=== PATIENT | female | born 1965 | race Caucasian/White ===

== ENCOUNTER → 2016-04-29 | Outpatient (CLI) | payer BC ==
--- NOTE | 2016-04-30 06:57 | US ---
EXAMINATION TYPE: US thyroid st tissue head/neck DATE OF EXAM: 04/29/2016 3:56 PM COMPARISON: NONE CLINICAL HISTORY: R59.0 Loc enlarged lymph nodes. Bilateral anterior neck palpable areas. TECHNOLOGIST IMPRESSION: Bilateral neck scanned at area of palpable masses. On both sides, multiple vascular hypoechoic lesions seen. Largest measured. Probable lymph nodes. Right- 1- 1.1 x 0.6 x 0.3 cm 2- 1.0 x 0.7 x 0.4 cm Left- 1- 1.3 x 0.8 x 0.7 cm 2- 0.7 x 0.4 x 0.3 cm 3- 1.9 x 1.1 x 0.5 cm Images of the bilateral neck show prominent but benign-appearing oval well-circumscribed lymph nodes that appear to retain normal central hyperechoic area or fatty hilum. No lymph nodes greater than 1 c m in short axis are clearly seen. No worrisome fluid collection is noted. IMPRESSION: Benign-appearing lymph nodes documented by technologist. No suspicious mass or adenopath y is clearly identified on images saved.
--- NOTE | 2016-05-02 07:48 | MM ---
Reason for exam: history of breast cancer, mastectomy. History: Patient is postmenopausal and is nulliparous. Mastectomy of the right breast, 2004. Took antineoplastic for 1 year 6 months beginning at age 39. Physical Findings: Nurse did not find any significant physical abnormalities on exam. MG Diagnostic Mammo LT w CAD CC and MLO view(s) were taken of the left breast. The breast tissue is heterogeneously dense. This may lower the sensitivity of mammography. No significant new findings when compared with previous films. These results were verbally communicated with the patient and result sheet given to the patient on 04/29/16. ASSESSMENT: Benign, BI-RAD 2 RECOMMENDATION: Follow-up diagnostic mammogram of the left breast in 1 year.
== END | disposition home or self-care (01) ==
LOC: RADMAMWWP 14:34
PROVIDERS: ATTEND Family Medicine
DX: Z08 Encounter for follow-up examination after completed treatment for malignant neoplasm (principal); Z85.3 Personal history of malignant neoplasm of breast; R59.0 Localized enlarged lymph nodes
CPT/HCPCS: 76536; G0206

== ENCOUNTER → 2017-08-10 | Outpatient (CLI) | payer BC ==
--- NOTE | 2017-08-10 14:21 | MM ---
Reason for exam: additional evaluation requested from prior study. Last mammogram was performed 1 year and 3 months ago. History: Patient is postmenopausal, has history of breast cancer at age 38, and is nulliparous. Mastectomy of the right breast, 2004. Took antineoplastic for 1 year 6 months beginning at age 39. Physical Findings: Nurse Summary: 1 x 1cm nodule in the right breast outer aspect mastectomy scar and a 1 x 1.5cm nodule in the left breast at 1 o'clock upper outer quadrant (nurse ts). MG 3D Diag Mammo W/Cad LT CC and MLO view(s) were taken of the left breast. Prior study comparison: April 29, 2016, left breast MG diagnostic mammo LT w CAD. The breast tissue is heterogeneously dense. This may lower the sensitivity of mammography. There is no discrete abnormality including area of concern. No significant new findings when compared with previous films. These results were verbally communicated with the patient and result sheet given to the patient on 08/10/17. ASSESSMENT: Incomplete: need additional imaging evaluation, BI-RAD 0 RECOMMENDATION: Ultrasound of both breasts.
--- NOTE | 2017-08-10 14:22 | USB ---
Reason for exam: additional evaluation requested from abnormal screening. History: Patient is postmenopausal, has history of breast cancer at age 38, and is nulliparous. Mastectomy of the right breast, 2004. Took antineoplastic for 1 year 6 months beginning at age 39. US Breast Limited BILAT Right limited breast ultrasound including focal area of concern, retroareolar and axilla demonstrates no cystic or solid lesion seen. Left limited breast ultrasound including focal area of concern, retroareolar and axilla demonstrates no cystic or solid lesion seen. Left 1 o'clock palpable appears to be dense tissue. These results were verbally communicated with the patient and result sheet given to the patient on 08/10/17. ASSESSMENT: Negative, BI-RAD 1 RECOMMENDATION: Follow-up diagnostic mammogram of the left breast in 1 year.
== END | disposition home or self-care (01) ==
LOC: RADMAMWWP 12:52
PROVIDERS: ATTEND Family Medicine
DX: Z08 Encounter for follow-up examination after completed treatment for malignant neoplasm (principal); R92.8 Other abnormal and inconclusive findings on diagnostic imaging of breast; Z85.3 Personal history of malignant neoplasm of breast
CPT/HCPCS: 77061; 77065

== ENCOUNTER → 2019-10-23 | Outpatient (CLI) | payer BC ==
--- NOTE | 2019-10-23 15:05 | MM ---
Reason for exam: additional evaluation requested from prior study. Last mammogram was performed 2 years and 2 months ago. History: Patient is postmenopausal, has history of breast cancer at age 38, and is nulliparous. Family history of breast cancer in paternal aunt. Mastectomy of the right breast, 2004. Took antineoplastic for 1 year 6 months beginning at age 39. Physical Findings: Nurse did not find any significant physical abnormalities on exam. MG 3D Diag Mammo W/Cad LT CC, MLO, spot compression MLO, and spot compression CC view(s) were taken of the left breast. Prior study comparison: August 10, 2017, left breast MG 3d diag mammo w/cad LT. April 29, 2016, left breast MG diagnostic mammo LT w CAD. The breast tissue is heterogeneously dense. This may lower the sensitivity of mammography. Subtle asymmetric density posterior upper outer quadrant maybe slightly more pronounced. Appearance is unchanged on spot views. Ultrasound recommended. These results were verbally communicated with the patient and result sheet given to the patient on 10/23/19. ASSESSMENT: Incomplete: need additional imaging evaluation, BI-RAD 0 RECOMMENDATION: Ultrasound of the left breast. (upper outer quadant)
--- NOTE | 2019-10-23 15:06 | USB ---
Reason for exam: additional evaluation requested from abnormal screening. History: Patient is postmenopausal, has history of breast cancer at age 38, and is nulliparous. Family history of breast cancer in paternal aunt. Mastectomy of the right breast, 2004. Took antineoplastic for 1 year 6 months beginning at age 39. US Breast Limited LT Left limited breast ultrasound including focal area of concern, retroareolar and axilla demonstrates no cystic or solid lesion seen. Scanned 12-3 o'clock. Precautionary 6 month follow up mammogram. These results were verbally communicated with the patient and result sheet given to the patient on 10/23/19. ASSESSMENT: Probably benign, BI-RAD 3 RECOMMENDATION: Follow-up diagnostic mammogram of the left breast in 6 months.
== END | disposition home or self-care (01) ==
LOC: RADMAMWWP 13:34
PROVIDERS: ATTEND Family Medicine
DX: R92.8 Other abnormal and inconclusive findings on diagnostic imaging of breast (principal)
CPT/HCPCS: 77061; 77065

== ENCOUNTER → 2020-05-22 | Outpatient (CLI) | payer BC ==
--- NOTE | 2020-05-25 09:32 | MM ---
Reason for exam: follow-up at short interval from prior study. Last mammogram was performed 7 months ago. History: Patient is postmenopausal, has history of breast cancer at age 38, and is nulliparous. Family history of breast cancer in paternal aunt. Mastectomy of the right breast, 2004. Took antineoplastic for 1 year 6 months beginning at age 39. Physical Findings: Nurse did not find any significant physical abnormalities on exam. MG 3D Diag Mammo W/Cad LT CC and MLO view(s) were taken of the left breast. Prior study comparison: October 23, 2019, left breast MG 3d diag mammo w/cad LT. August 10, 2017, left breast MG 3d diag mammo w/cad LT. The breast tissue is heterogeneously dense. This may lower the sensitivity of mammography. Superior asymmetric density on 3D diserses on spot 3D. No significant new findings when compared with previous films. These results were verbally communicated with the patient and result sheet given to the patient on 05/22/20. ASSESSMENT: Benign, BI-RAD 2 RECOMMENDATION: Follow-up diagnostic mammogram of the left breast in 1 year.
== END | disposition home or self-care (01) ==
LOC: RADMAMWWP 14:07
PROVIDERS: ATTEND Family Medicine
DX: Z78.0 Asymptomatic menopausal state (principal); Z85.3 Personal history of malignant neoplasm of breast; Z80.3 Family history of malignant neoplasm of breast
CPT/HCPCS: 77061; 77065

== ENCOUNTER → 2021-06-21 | Outpatient (CLI) | payer BC ==
--- NOTE | 2021-06-21 13:30 | MM ---
Reason for exam: additional evaluation requested from prior study. Last mammogram was performed 1 year and 1 month ago. History: Patient is postmenopausal, has history of breast cancer at age 38, and is nulliparous. Family history of breast cancer in paternal aunt. Mastectomy of the right breast, 2004. Took antineoplastic for 1 year 6 months beginning at age 39. Physical Findings: A clinical breast exam by your physician is recommended on an annual basis and results should be correlated with mammographic findings. MG 3D Diag Mammo W/Cad LT CC and MLO view(s) were taken of the left breast. Prior study comparison: May 22, 2020, left breast MG 3d diag mammo w/cad LT. October 23, 2019, left breast MG 3d diag mammo w/cad LT. The breast tissue is heterogeneously dense. This may lower the sensitivity of mammography. There is no discrete abnormality. Results were given to the patient verbally at the time of the exam. ASSESSMENT: Negative, BI-RAD 1 RECOMMENDATION: Routine screening mammogram of the left breast in 1 year.
== END | disposition home or self-care (01) ==
LOC: RADMAMWWP 12:47
PROVIDERS: ATTEND Family Medicine
DX: R92.8 Other abnormal and inconclusive findings on diagnostic imaging of breast (principal); Z78.0 Asymptomatic menopausal state; Z80.3 Family history of malignant neoplasm of breast; Z85.3 Personal history of malignant neoplasm of breast; Z90.11 Acquired absence of right breast and nipple
CPT/HCPCS: 77061; 77065

== ENCOUNTER → 2021-11-09 | Outpatient (CLI) | payer BC ==
--- NOTE | 2021-11-09 13:06 | XR ---
EXAMINATION TYPE: XR Hip RT and AP Pelvis DATE OF EXAM: 11/09/2021 CLINICAL HISTORY: pain TECHNIQUE: AP and frogleg views of the right hip are obtained. Single view of the pelvis is also sub mitted. COMPARISON: None. FINDINGS: There is no acute fracture/dislocation evident. The joint space appears mildly narrowed. The overlying soft tissue appears unremarkable. IMPRESSION: 1. There is no acute fracture or dislocation. ICD 10 NO FRACTURE, INITIAL EVALUATION
== END | disposition home or self-care (01) ==
LOC: RADXRMAIN 12:38
PROVIDERS: ATTEND Family Medicine
DX: M25.551 Pain in right hip (principal)
CPT/HCPCS: 73502

== ENCOUNTER → 2022-09-09 | Outpatient (CLI) | payer BC ==
--- NOTE | 2022-09-12 15:23 | MM ---
Reason for Exam: Screening (asymptomatic). Last mammogram was performed 1 year(s) and 2 month(s) ago. Patient History: Menarche at age 11. Patient has no children. Hysterectomy at age 45. Postmenopausal. Breast cancer, right, age 38. 2004, Mastectomy on the Right side. Paternal aunt had breast cancer. Prior Study Comparison: 10/23/2019 Left Diagnostic Mammogram, [facility]. 05/22/2020 Left Diagnostic Mammogram, [facility]. 06/21/2021 Left Diagnostic Mammogram, [facility]. Tissue Density: Left: The breast tissue is heterogeneously dense. This may lower the sensitivity of mammography. Findings: Analyzed By CAD. Pattern appears stable. No suspicious groups of microcalcifications, spiculated or lobular masses, architectural distortion or other secondary signs of malignancy are mammographically apparent. Overall Assessment: Benign, BI-RAD 2 Management: Screening Mammogram of the left breast in 1 year. A negative mammogram report should not preclude additional follow up of suspicious palpable abnormalities. Patient should continue monthly self breast exam. A clinical breast exam by your physician is recommended on an annual basis and results should be correlated with mammographic findings. Electronically signed and approved by: Jed Corbin D.O. Radiologis
== END | disposition home or self-care (01) ==
LOC: RADMAMWWP 15:12
PROVIDERS: ATTEND Family Medicine
DX: Z12.31 Encounter for screening mammogram for malignant neoplasm of breast (principal); Z85.3 Personal history of malignant neoplasm of breast; Z78.0 Asymptomatic menopausal state; Z80.3 Family history of malignant neoplasm of breast; Z90.11 Acquired absence of right breast and nipple
CPT/HCPCS: 77067

== ENCOUNTER → 2023-10-24 | Outpatient (CLI) | payer BC ==
--- NOTE | 2023-10-25 11:14 | MM ---
Reason for Exam: Screening (asymptomatic). Last mammogram was performed 1 year(s) and 2 month(s) ago. Patient History: Menarche at age 11. Patient has no children. Hysterectomy at age 45. Postmenopausal. Breast cancer, right, age 38. 2004, Mastectomy on the Right side. Paternal aunt had breast cancer. Prior Study Comparison: 05/22/2020 Left Diagnostic Mammogram, [facility]. 06/21/2021 Left Diagnostic Mammogram, [facility]. 09/09/2022 Left MG 3D scr mayito unilateral w/cad., [facility]. Tissue Density: Left: The breasts are heterogeneously dense, which may obscure small masses. Findings: No evidence for mass or distortion left breast. No suspicious microcalcifications present. Overall Assessment: Negative, BI-RAD 1 Management: Screening Mammogram of the left breast in 1 year. . Patient should continue monthly self-breast exams. A clinical breast exam by your physician is recommended on an annual basis. This exam should not preclude additional follow-up of suspicious palpable abnormalities. Note on Shannan scores and lifetime risk: 1. A Shannan score greater than 3% is considered moderate risk. If this is the case, consider specialist referral to assess eligibility for a risk reducing agent. 2. If overall lifetime risk for the development of breast cancer is 20% or higher, the patient may qualify for future screening with alternating mammogram and breast MRI. Electronically signed and approved by: Zan Davidson M.D. Radiologis
== END | disposition home or self-care (01) ==
LOC: RADMAMWWP 07:38
PROVIDERS: ATTEND Obstetrics & Gynecology
DX: Z12.31 Encounter for screening mammogram for malignant neoplasm of breast
CPT/HCPCS: 77067